=== PATIENT | female | born 1990 ===

== ENCOUNTER 2016-11-25 16:28 | Emergency (ER) | payer BC ==
[~2016-11-25 16:28] MED LIST: COLACE-DPS100 MG PO; DERMOPLAST SPRA56 GM TP; MOTRIN-DPS800 MG PO; NIPPLECREAM TP; PRENATAL VIT1 TAB PO
--- NOTE | 2016-12-11 08:13 | ER ---
ADMIT: 11/25/2016 RM/LOC: ER [facility] MR#: [id number] [place], [place] [id number] LOREN JONES [address] [place] [address] Emergency Room Report SEX: F AGE: 26 : 1990 DATE: 11/25/2016 ADDENDUM: This patient comes into the ER because she has had a fever, cough, body aching, sore throat, and headache. All her family members at home have the same symptoms. Her influenza screen was negative. I did write a prescription for Phenergan with codeine. We will have her push fluids, rest, follow up with her primary. Please see my T-sheet. ELOINA Hughes / Steven Thorpe MD / yvonne JOB #: [id number] CC: Steven Thorpe MD, Attending Physician Kayleen Santiago DO Resident, Family Physician
== END 2016-11-25 18:35 | disposition home or self-care (01) ==
LOC: ER 16:28
DX: B34.9 Viral infection, unspecified (principal); Z79.899 Other long term (current) drug therapy